=== PATIENT | female | born 1950 | race Hispanic/Latino ===

== ENCOUNTER 2018-01-24 18:43 | Emergency (ER) | payer OTHER ==
--- NOTE | 2018-01-24 20:26 | RAD REPORT ---
EXAM DESCRIPTION: Laquita Single View01/24/2018 8:04 pm CLINICAL HISTORY: Chest pain COMPARISON: January 2017 FINDINGS: The lungs appear clear of acute infiltrate. The heart is normal size IMPRESSION: No acute abnormalities displayed
--- NOTE | 2018-01-24 20:40 | RAD REPORT ---
EXAM DESCRIPTION: CT - Head Brain Wo Cont - 01/24/2018 8:25 pm CLINICAL HISTORY: Dizziness COMPARISON: 2014 TECHNIQUE: Computed axial tomography of the head was obtained. IV contrast was not requested. All CT scans are performed using dose optimization technique as appropriate and may include automated exposure control or mA/KV adjustment according to patient size. FINDINGS: An intracranial bleed is not seen . The ventricles are normal in caliber. No extra-axial fluid collection is noted. Vascular calcifications are present. Fluid within the sinuses/ mastoids is not seen. IMPRESSION: No acute intracranial abnormality is seen. If patient's symptoms persist MRI of the bra in would be recommended.
[2018-01-24 20:46] LABS: Absolute Monocytes 0.4 K/uL (0.1-1.3); Absolute Neutrophil 3.2 K/uL (1.8-8.0); Basophils % 1.5 % (0-1.3); Eosinophils % 1.6 % (0-4.4); Hematocrit 41.8 % (36.0-45.0); Lymphocytes % 34.3 % (15.3-44.8); MCH 29.3 pg (27.0-35.0); MCV 86.4 fL (80-100); MPV 8.4 fL (7.6-11.3); Monocytes % 7.4 % (3.3-12.3); RBC Red Blood Cell Count 4.84 M/uL (3.86-4.86)
[2018-01-24 20:50] LABS: Protime INR 0.93
[2018-01-24 21:08] LABS: ALT/SGPT 21 U/L (12-78); AST/SGOT 12 U/L (15-37); Albumin 3.5 g/dL (3.4-5.0); Alkaline Phosphatase 68 U/L (45-117); BUN Blood Urea Nitrogen 16 mg/dL (7-18); Bicarbonate 30 mmol/L (21-32); Bilirubin Direct 0.2 mg/dL (0-0.2); Bilirubin Total 0.6 mg/dL (0.2-1.0); CKMB Creatine Kinase MB < 1.0 ng/mL (0.3-3.6); Creatine Phosphokinase 51 U/L (26-192); Glucose Level 201 mg/dL (74-106); Magnesium 2.1 mg/dL (1.8-2.4); NT PRO-BNP 131 pg/mL (<125); Potassium 4.7 mmol/L (3.5-5.1); Protein, Total 6.9 g/dL (6.4-8.2); Sodium Level 141 mmol/L (136-145)
--- NOTE | 2018-01-24 21:24 | RAD REPORT ---
EXAM DESCRIPTION: US - Abdomen Exam Limited - 01/24/2018 9:16 pm CLINICAL HISTORY: Abdominal pain. COMPARISON: None. FINDINGS: The gallbladder wall is not thickened. A gallstone is not seen. A 3 millimeter gallbladde r polyp is present. The biliary tree is normal caliber. IMPRESSION: 3 millimeter gallbladder polyp
[2018-01-24 21:44] LABS: Urine Blood NEGATIVE (NEG); Urine Glucose 3+ (NEG); Urine Protein NEGATIVE (NEG); Urine Specific Gravity 1.025 (1.005-1.030)
--- NOTE | 2018-01-25 00:29 | EDPHYS ---
Physician Documentation [facility] Name: Deloris Gilbert Age: 67 yrs Sex: Female : 1950 Arrival Date: 01/24/2018 Time: 18:46 Bed 30 Private MD: Suri Mendosa ED Physician Carlito Smith HPI: 01/24 20:59 This 67 yrs old Female presents to ER via Wheelchair with complaints of tw4 General Weakness. 20:59 The patient presents with generalized weakness. Onset: The symptoms/episode tw4 began/occurred today. Context: occurred at home. Modifying factors: The symptoms are alleviated by nothing, the symptoms are aggravated by nothing. Severity of symptoms: At their worst the symptoms were moderate in the emergency department the symptoms are unchanged. The patient has not experienced similar symptoms in the past. 20:59 Associated signs and symptoms: Pertinent positives: abdominal pain. tw4 Historical: - Allergies: 18:48 No Known Allergies; aa5 - PMHx: 18:48 Diabetes - NIDDM; Hypertension; Hyperlipidemia; aa5 - PSHx: 18:48 Hysterectomy; shoulder sx; Appendectomy; Tonsillectomy; aa5 - Immunization history:: Flu vaccine is not up to date. - Ebola Screening: : No symptoms or risks identified at this time. - Social history:: Smoking status: Patient/guardian denies using tobacco, Patient/guardian denies using alcohol, street drugs, IV drugs. ROS: 20:59 Constitutional: Negative for fever, chills, and weight loss, Cardiovascular: Negative tw4 for chest pain, palpitations, and edema, Respiratory: Negative for shortness of breath, cough, wheezing, and pleuritic chest pain, Back: Negative for injury and pain. 20:59 Abdomen/GI: Positive for abdominal pain. 20:59 MS/Extremity: Negative for injury and deformity, Skin: Negative for injury, rash, and tw4 discoloration. 20:59 Neuro: Positive for altered mental status, headache, weakness, Negative for loss of consciousness, seizure activity, speech changes, syncope, near syncope. Exam: 20:59 Head/Face: Normocephalic, atraumatic. Eyes: Pupils equal round and reactive to light, tw4 extra-ocular motions intact. Lids and lashes normal. Conjunctiva and sclera are non-icteric and not injected. Cornea within normal limits. Periorbital areas with no swelling, redness, or edema. Chest/axilla: Normal chest wall appearance and motion. Nontender with no deformity. No lesions are appreciated. Cardiovascular: Regular rate and rhythm with a normal S1 and S2. No gallops, murmurs, or rubs. Normal PMI, no JVD. No pulse deficits. Respiratory: Lungs have equal breath sounds bilaterally, clear to auscultation and percussion. No rales, rhonchi or wheezes noted. No increased work of breathing, no retractions or nasal flaring. 20:59 MS/ Extremity: Pulses equal, no cyanosis. Neurovascular intact. Full, normal range of motion. Neuro: Awake and alert, GCS 15, oriented to person, place, time, and situation. Cranial nerves II-XII grossly intact. Motor strength 5/5 in all extremities. Sensory grossly intact. Cerebellar exam normal. Normal gait. 20:59 Constitutional: The patient appears listless, obviously ill. 20:59 Abdomen/GI: Inspection: abdomen appears normal, Bowel sounds: diminished, Palpation: moderate abdominal tenderness, in the right upper quadrant. Vital Signs: 18:48 BP 183 / 68; Pulse 81; Resp 16 S; Temp 98.2(TE); Pulse Ox 96% on R/A; aa5 21:14 BP 137 / 55; Pulse 72; Resp 18; Pulse Ox 96% on R/A; Pain 2/10; mg2 22:17 BP 135 / 55; Pulse 71; Resp 18; Pulse Ox 97% ; Pain 0/10; mg2 23:25 Pulse 68; Resp 18; Pulse Ox 97% on R/A; Pain 0/10; mg2 01/25 00:45 BP 138 / 78; Pulse 77; Resp 18; Pulse Ox 100% on R/A; Pain 0/10; mg2 MDM: 01/24 19:15 Patient medically screened. tw4 01/25 00:31 Differential diagnosis: cardiac arrhythmia, CVA, generalized weakness, tw4 hyperventilation, hypovolemia, near-syncope. Data reviewed: vital signs, nurses notes. Data interpreted: hospital monitor: rhythm is normal sinus rhythm, Pulse oximetry: Interpretation: normal. Counseling: I had a detailed discussion with the patient and/or guardian regarding: the historical points, exam findings, and any diagnostic results supporting the discharge/admit diagnosis. Special discussion: I discussed with the patient/guardian in detail that at this point there is no indication for admission to the hospital. It is understood, however, that if the symptoms persist or worsen the patient needs to return immediately for re-evaluation. 01/24 19:43 Order name: Basic Metabolic Panel; Complete Time: 22:13 01/24 19:43 Order name: CBC with Diff; Complete Time: 20:57 01/24 19:43 Order name: Ckmb; Complete Time: 22:13 01/24 19:43 Order name: CPK; Complete Time: 22:13 01/24 19:43 Order name: LFT's; Complete Time: 22:13 01/24 19:43 Order name: Magnesium; Complete Time: 22:13 01/24 19:43 Order name: NT PRO-BNP; Complete Time: 22:13 01/24 19:43 Order name: PT-INR; Complete Time: 20:57 01/24 19:43 Order name: Ptt, Activated; Complete Time: 20:57 01/24 19:43 Order name: Troponin (emerg Dept Use Only); Complete Time: 22:13 01/24 19:43 Order name: XRAY Chest (1 view); Complete Time: 20:57 01/24 19:43 Order name: CT Head Brain wo Cont; Complete Time: 20:57 01/24 20:03 Order name: Urine Dipstick--Ancillary (enter results); Complete Time: 22:13 [facility] 01/24 20:58 Order name: US Abdomen Limited; Complete Time: 22:13 01/24 19:43 Order name: EKG; Complete Time: 19:44 01/24 19:43 Order name: Cardiac monitoring; Complete Time: 19:46 01/24 19:43 Order name: EKG - Nurse/Tech; Complete Time: 19:46 01/24 19:43 Order name: IV Saline Lock; Complete Time: 20:07 01/24 19:43 Order name: Labs collected and sent; Complete Time: 20:07 01/24 19:43 Order name: O2 Per Protocol; Complete Time: 20:01/24 19:43 Order name: O2 Sat Monitoring; Complete Time: 20:07 [facility] 01/24 19:43 Order name: Urine Dipstick-Ancillary (obtain specimen); Complete Time: 20:07 01/24 22:14 Order name: CT Abd/Pelvis - W/Contrast tw4 Administered Medications: No medications were administered Point of Care Testing: Blood Glucose: 01/24 18:48 Blood Glucose: 172 mg/dL; aa5 Ranges: Critical Glucose Levels:Adult <50 mg/dl or >400 mg/dl <40 mg/dl or >180 mg/dl Disposition: 01/25/18 00:28 Discharged to Home. Impression: Weakness. - Condition is Stable. - Discharge Instructions: Weakness, Fatigue. - Medication Reconciliation Form, Thank You Letter, Antibiotic Education, Prescription Opioid Use form. - Follow up: Private Physician; When: Upon discharge from the Emergency Department; Reason: Further diagnostic work-up, Recheck today's complaints, Continuance of care. Follow up: Suri Mendosa; When: Upon discharge from the Emergency Department; Reason: Further diagnostic work-up, Recheck today's complaints, Continuance of care. - Problem is new. - Symptoms have improved. Signatures: Dispatcher [employer] EDMS Leila Ruelas RN RN aa5 Carlito Smith MD MD tw4 Constantino Castillo RN RN mg2 Corrections: (The following items were deleted from the chart) 21:00 20:59 Associated signs and symptoms: Pertinent positives: 4 01/25 00:45 00:28 01/25/2018 00:28 Discharged to Home. Impression: Weakness. Condition is Stable. mg2 Forms are Medication Reconciliation Form, Thank You Letter, Antibiotic Education, Prescription Opioid Use. Follow up: Private Physician; When: Upon discharge from the Emergency Department; Reason: Further diagnostic work-up, Recheck today's complaints, Continuance of care. Follow up: Suri Mendosa; When: Upon discharge from the Emergency Department; Reason: Further diagnostic work-up, Recheck today's complaints, Continuance of care. Problem is new. Symptoms have improved. tw4
--- NOTE | 2018-01-25 00:29 | ER ---
Nurse's Notes [facility] Name: Deloris Gilbert Age: 67 yrs Sex: Female : 1950 Arrival Date: 01/24/2018 Time: 18:46 Bed 30 Private MD: Suri Mendosa Diagnosis: Weakness Presentation: 01/24 18:55 Presenting complaint: Pt's daughter states "I went to her house and it took me a while aa5 before I could get her to wake up for me and she just told me that she needed to go to sleep". Pt c/o dizziness and feeling lightheaded since last night. Pt c/o RLQ pain and chest pain. Pt also reports generalized weakness. Pt A \\T\\ O x 4 in triage. Pt also reports cough. 18:58 Transition of care: patient was not received from another setting of care. Onset of aa5 symptoms was January 24, 2018. Risk Assessment: Do you want to hurt yourself or someone else? Patient reports no desire to harm self or others. Initial Sepsis Screen: Does the patient meet any 2 criteria? No. Patient's initial sepsis screen is negative. Does the patient have a suspected source of infection? No. Patient's initial sepsis screen is negative. Care prior to arrival: None. 18:58 Method Of Arrival: Wheelchair aa5 18:58 Acuity: JOSEFINA 3 aa5 Historical: - Allergies: 18:48 No Known Allergies; aa5 - PMHx: 18:48 Diabetes - NIDDM; Hypertension; Hyperlipidemia; aa5 - PSHx: 18:48 Hysterectomy; shoulder sx; Appendectomy; Tonsillectomy; aa5 - Immunization history:: Flu vaccine is not up to date. - Ebola Screening: : No symptoms or risks identified at this time. - Social history:: Smoking status: Patient/guardian denies using tobacco, Patient/guardian denies using alcohol, street drugs, IV drugs. Screenin:09 Abuse screen: Denies threats or abuse. Denies injuries from another. Nutritional mg2 screening: No deficits noted. Tuberculosis screening: No symptoms or risk factors identified. Fall Risk None identified. Assessment: 19:09 General: Appears in no apparent distress. comfortable, Behavior is calm, cooperative, mg2 flat. Pain: Complains of pain in chest Pain does not radiate. Pain currently is 4 out of 10 on a pain scale. Quality of pain is described as aching, Pain began gradually, Is intermittent. Neuro: Level of Consciousness is awake, alert, Oriented to person, place, time, situation. Cardiovascular: Capillary refill < 3 seconds Patient's skin is warm and dry. Respiratory: Airway is patent Respiratory effort is even, unlabored, Respiratory pattern is regular, symmetrical. GI: Abdomen is flat. : No signs and/or symptoms were reported regarding the genitourinary system. EENT: No signs and/or symptoms were reported regarding the EENT system. Derm: Skin is intact, Skin is pink, warm \\T\\ dry. normal. Musculoskeletal: No signs and/or symptoms reported regarding the musculoskeletal system. 21:13 Reassessment: Patient appears in no apparent distress at this time. Patient and/or mg2 family updated on plan of care and expected duration. Pain level reassessed. Patient is alert, oriented x 3, equal unlabored respirations, skin warm/dry/pink. 22:18 Reassessment: Patient appears in no apparent distress at this time. Patient and/or mg2 family updated on plan of care and expected duration. Pain level reassessed. Patient is alert, oriented x 3, equal unlabored respirations, skin warm/dry/pink. 22:31 Reassessment: patient sent to ct scan. mg2 23:25 Reassessment: Patient appears in no apparent distress at this time. Patient and/or mg2 family updated on plan of care and expected duration. Pain level reassessed. Patient is alert, oriented x 3, equal unlabored respirations, skin warm/dry/pink. 01/25 00:44 Reassessment: Patient appears in no apparent distress at this time. Patient and/or mg2 family updated on plan of care and expected duration. Pain level reassessed. Patient is alert, oriented x 3, equal unlabored respirations, skin warm/dry/pink. Vital Signs: 01/24 18:48 BP 183 / 68; Pulse 81; Resp 16 S; Temp 98.2(TE); Pulse Ox 96% on R/A; aa5 21:14 BP 137 / 55; Pulse 72; Resp 18; Pulse Ox 96% on R/A; Pain 2/10; mg2 22:17 BP 135 / 55; Pulse 71; Resp 18; Pulse Ox 97% ; Pain 0/10; mg2 23:25 Pulse 68; Resp 18; Pulse Ox 97% on R/A; Pain 0/10; mg2 01/25 00:45 BP 138 / 78; Pulse 77; Resp 18; Pulse Ox 100% on R/A; Pain 0/10; mg2 ED Course: 01/24 18:46 Patient arrived in ED. mr 18:47 Suri Mendosa is Private Physician. mr 18:55 Arm band placed on Patient placed in an exam room, on a stretcher. aa5 18:58 Triage completed. aa5 18:59 Constantino Castillo, RN is Primary Nurse. mg2 19:11 Patient has correct armband on for positive identification. Bed in low position. mg2 19:15 Carlito Smith MD is Attending Physician. tw4 19:35 EKG done, by ED staff. mg2 20:03 X-ray completed. Portable x-ray completed in exam room. Patient tolerated procedure az well. 20:04 XRAY Chest (1 view) In Process Unspecified. EDMS 20:08 Inserted saline lock: 20 gauge in right antecubital area, using aseptic technique. mg2 Blood collected. 20:25 CT Head Brain wo Cont In Process Unspecified. EDMS 21:16 US Abdomen Limited In Process Unspecified. EDMS 23:11 CT Abd/Pelvis - W/Contrast In Process Unspecified. EDMS 01/25 00:27 Suri Mendosa is Referral Physician. tw4 00:44 No provider procedures requiring assistance completed. IV discontinued, intact, mg2 bleeding controlled, No redness/swelling at site. Pressure dressing applied. Administered Medications: No medications were administered Point of Care Testing: Blood Glucose: 01/24 18:48 Blood Glucose: 172 mg/dL; aa5 Ranges: Outcome: 01/25 00:28 Discharge ordered by . tw4 00:45 Discharged to home via wheelchair, with family. mg2 00:45 Condition: stable 00:45 Discharge instructions given to patient, family, Instructed on discharge instructions, follow up and referral plans. Demonstrated understanding of instructions, follow-up care. 00:45 Patient left the ED. mg2 Signatures: Dispatcher [employer] EDPA PeraltaRadha mr RuelasLeila RN RN aa5 Carlito Smith MD MD tw4 Constantino Castillo, RICKI RN mg2 Estefania Story Corrections: (The following items were deleted from the chart) 01/24 18:58 18:55 Presenting complaint: Pt's daughter states "I went to her house and it took me a aa5 while before I could get her to wake up for me and she just told me that she needed to go to sleep". Pt c/o dizziness and feeling lightheaded since last night. Pt c/o RLQ pain and chest pain. Pt also reports generalized weakness. aa5 18:59 18:55 Presenting complaint: Pt's daughter states "I went to her house and it took me a aa5 while before I could get her to wake up for me and she just told me that she needed to go to sleep". Pt c/o dizziness and feeling lightheaded since last night. Pt c/o RLQ pain and chest pain. Pt also reports generalized weakness. Pt A \\T\\ O x 4 in triage aa5
--- NOTE | 2018-01-25 06:46 | EKG ---
Test Date: 2018-01-24 Test Time: 19:02:07 Glass Cleaner: MG MEASUREMENT RESULTS: Intervals: Rate: 74 FL: 166 QRSD: 74 QT: 392 QTc: 435 Colver: P: -2 FL: 166 QRS: -4 T: 15 INTERPRETIVE STATEMENTS: Normal sinus rhythm Non specific T abnormality Abnormal ECG Compared to ECG 12/26/2007 10:20:38 No significant changes Electronically Signed On 01-25-18 06:45:03 CDT by Jarett Flores
--- NOTE | 2018-01-25 08:19 | RAD REPORT ---
EXAM DESCRIPTION: CT - Abdomen Pelvis W Contrast - 01/25/2018 4:00 am CLINICAL HISTORY: ABD PAIN<Reason For Exam>ABD PAIN A preliminary report was provided at the time of the study and reviewed prior to final report. COMPARISON: No comparisons<Comparisons> TECHNIQUE: Biphasic, helical CT imaging of the abdomen and pelvis was performed following 100 ml non -ionic IV contrast. Oral contrast was given. All CT scans are performed using dose optimization technique as appropriate and may include automated exposure control or mA/KV adjustment according to patient size. FINDINGS: No suspicious findings in the lung bases. The liver, spleen, and pancreas show no suspicious findings. In the posteromedial right lobe (image 1 ) there is a 2.4 centimeter low-density mass. Irregular peripheral nodular enhancement is seen an d this is believed to be an incidental hemangioma. Two small 12 millimeter low-density masses in the midline left lobe are also believed to be incidental hemangiomas. No gallbladder or biliary tree abnormality. Symmetric renal function is seen with no hydronephrosis or suspicious renal mass. No pyelonephritis o r acute renal parenchymal process. No urinary bladder abnormality seen. No dilated bowel loops or bowel wall thickening. No free air, free fluid or inflammatory stranding. No mass or bulky lymphadenopathy. Fat filled right inguinal hernia. No adrenal abnormality. Uterus i s absent. Ovaries are absent or atrophic. No adnexal mass. No suspicious bony findings. Scattered bony degenerative change seen. IMPRESSION: Contrast enhanced CT abdomen and pelvis showing no significant or suspicious finding. N onacute findings detailed in the body of the report.
== END 2018-01-25 00:45 | disposition home or self-care (01) ==
LOC: ER 18:43
DX: R53.1 Weakness (principal); I10 Essential (primary) hypertension
CPT/HCPCS: 36415; 70450; 71045; 74177; 76705; 80048; 80076; 81003; 82550; 82553; 82962; 83735; 83880; 84484; 85025; 85610; 85730; 93005; 99284; Q9967

== ENCOUNTER 2020-12-24 20:16 | Emergency (ER) | payer OTHER, SELFPAY ==
--- NOTE | 2020-12-24 21:55 | RAD REPORT ---
EXAM DESCRIPTION: US - Extremity Venous Uni Ltd - 12/24/2020 9:27 pm CLINICAL HISTORY: SWELLING Leg swelling and edema. COMPARISON: EXT VENOUS UNI LTD dated 07/22/2010 FINDINGS: Left lower extremity venous system was interrogated with Doppler technique. Normal flow, c ompressibility and augmentation was noted. There is no DVT present. IMPRESSION: No evidence of left lower extremity deep venous thrombosis.
[2020-12-24 22:58] LABS: Absolute Lymphocytes (CBC) 1.7 K/uL (0.7-4.9); Basophils % 1.1 % (0-1.3); Hematocrit 38.2 % (36.0-45.0); Lymphocytes % 35.1 % (15.3-44.8); MPV 8.3 fL (7.6-11.3); RBC Red Blood Cell Count 4.33 M/uL (3.86-4.86)
[2020-12-24 22:59] LABS: Protime INR 1.02
[2020-12-24 23:12] LABS: ALT/SGPT 21 U/L (12-78); AST/SGOT 12 U/L (15-37); Albumin 3.5 g/dL (3.4-5.0); Alkaline Phosphatase 67 U/L (45-117); BUN Blood Urea Nitrogen 17 mg/dL (7-18); Bicarbonate 27 mmol/L (21-32); Bilirubin Direct 0.2 mg/dL (0-0.2); Bilirubin Total 0.9 mg/dL (0.2-1.0); Glucose Level 107 mg/dL (74-106); Magnesium 1.9 mg/dL (1.8-2.4); NT PRO-BNP 351 pg/mL (<125); Potassium 3.5 mmol/L (3.5-5.1); Protein, Total 7.1 g/dL (6.4-8.2); Sodium Level 143 mmol/L (136-145); Troponin (Emerg Dept Use Only) < 0.02 ng/mL (0.0-0.045)
--- NOTE | 2020-12-24 23:35 | ER ---
Nurse's Notes [facility] Name: Deloris Gilbert Age: 70 yrs Sex: Female : 1950 Arrival Date: 12/24/2020 Time: 20:17 Bed 26 Private MD: Diagnosis: Peripheral edema Presentation: 12/24 20:50 Chief complaint: Patient states: Swelling and pain in left leg from thigh down to foot kg x 1 month. Coronavirus screen: Client denies travel out of the [place] in the last 14 days. At this time, unable to obtain information related to travel outside the [place] At this time, the client does not indicate any symptoms associated with coronavirus-19. Ebola Screen: Patient negative for fever greater than or equal to 101.5 degrees Fahrenheit, and additional compatible Ebola Virus Disease symptoms Patient denies exposure to infectious person. Patient denies travel to an Ebola-affected area in the 21 days before illness onset. Initial Sepsis Screen: Does the patient meet any 2 criteria? No. Patient's initial sepsis screen is negative. Does the patient have a suspected source of infection? No. Patient's initial sepsis screen is negative. Risk Assessment: Do you want to hurt yourself or someone else? Patient reports no desire to harm self or others. Onset of symptoms is unknown. 20:50 Method Of Arrival: Ambulatory kg 20:50 Acuity: JOSEFINA 4 kg Triage Assessment: 20:52 General: Appears in no apparent distress. Behavior is calm, cooperative, appropriate kg for age, quiet. Pain: Complains of pain in left leg Pain currently is 8 out of 10 on a pain scale. at worst was 8 out of 10 on a pain scale. level that patient reports is acceptable is 6 out of 10 on a pain scale. Quality of pain is described as burning, Pain began 1 month. Cardiovascular: Edema Left foot. Historical: - Allergies: 20:52 No Known Allergies; kg - Home Meds: 20:52 metformin 1,000 mg Oral tr24 1 tab 2 times per day [Active]; B/P and Cholestrol meds. kg Unsure of name [Active]; - PMHx: 20:52 Diabetes - NIDDM; Hyperlipidemia; Hypertension; kg - PSHx: 20:52 Appendectomy; Tonsillectomy; Right shoulder sx; Total abdominal hysterectomy; kg - Immunization history:: Adult Immunizations not up to date, Client reports receiving the 2nd dose of the Covid vaccine. - Social history:: Smoking status: Patient denies any tobacco usage or history of. Patient uses alcohol, occasionally. Screenin:56 Abuse screen: Denies threats or abuse. Denies injuries from another. Nutritional kg screening: No deficits noted. Tuberculosis screening: No symptoms or risk factors identified. Fall Risk None identified. Assessment: 22:07 General: Appears in no apparent distress. comfortable, Behavior is calm, cooperative, ld1 appropriate for age. Pain: Denies pain. Neuro: Level of Consciousness is awake, alert, obeys commands, Oriented to person, place, time, situation. Cardiovascular: Capillary refill < 3 seconds Patient's skin is warm and dry. Respiratory: Airway is patent Respiratory effort is even, unlabored, Respiratory pattern is regular, symmetrical. GI: Abdomen is round non-distended. : No signs and/or symptoms were reported regarding the genitourinary system. EENT: No signs and/or symptoms were reported regarding the EENT system. Derm: No signs and/or symptoms reported regarding the dermatologic system. Musculoskeletal: No signs and/or symptoms reported regarding the musculoskeletal system. 23:08 Reassessment: Patient appears in no apparent distress at this time. Patient and/or ld1 family updated on plan of care and expected duration. Pain level reassessed. Patient is alert, oriented x 3, equal unlabored respirations, skin warm/dry/pink. Patient denies pain at this time. Vital Signs: 20:50 BP 161 / 62; Pulse 74; Resp 20; Temp 98.2; Pulse Ox 100% on R/A; Weight 86.18 kg; kg Height 5 ft. 2 in. (157.48 cm); 22:07 BP 155 / 49; Pulse 78; Resp 20; Pulse Ox 100% on R/A; ld1 23:08 BP 164 / 67; Pulse 67; Resp 18; Pulse Ox 100% on R/A; ld1 20:50 Body Mass Index 34.75 (86.18 kg, 157.48 cm) kg ED Course: 20:17 Patient arrived in ED. cf2 20:52 Triage completed. kg 20:52 Arm band placed on left wrist. kg 20:56 Patient has correct armband on for positive identification. kg 21:27 Extremity Venous Uni Ltd In Process Unspecified. EDMS 21:27 David Guevara PA is PHCP. [facility] 21:27 Brent Lema MD is Attending Physician. [facility] 22:03 Kim Pratt, RN is Primary Nurse. ld1 22:07 No provider procedures requiring assistance completed. ld1 22:45 Inserted saline lock: 22 gauge in right forearm, using aseptic technique. Blood ds4 collected. 22:56 XRAY Chest (1 view) In Process Unspecified. EDMS 23:45 IV discontinued, intact, bleeding controlled, No redness/swelling at site. ld1 Administered Medications: No medications were administered Outcome: 23:34 Discharge ordered by MD. [facility] 23:44 Discharged to home ambulatory. ld1 23:44 Condition: stable 23:44 Discharge instructions given to patient, Instructed on discharge instructions, follow up and referral plans. medication usage, Demonstrated understanding of instructions, follow-up care, medications, Prescriptions given X 1. 23:45 Patient left the ED. ld1 Signatures: Dispatcher [employer] EDMS David Guevara PA PA [facility] Hieu Beaver ds4 Adriane George cf2 Kim Pratt, RN RN ld1 Kierra Wilkes, RICKI RN kg
--- NOTE | 2020-12-24 23:35 | EDPHYS ---
Physician Documentation [facility] Name: Deloris Gilbert Age: 70 yrs Sex: Female : 1950 Arrival Date: 12/24/2020 Time: 20:17 Bed 26 Private MD: ED Physician Brent Lema HPI: 12/24 21:26 This 70 yrs old Female presents to ER via Ambulatory with complaints of Leg jmm Swelling, Feet Swelling, HAS BEEN SWOLLEN FOR 1 MONTH. 21:26 The patient presents with swelling. Onset: The symptoms/episode began/occurred jmm gradually, 2 month(s) ago. Modifying factors: The symptoms are alleviated by nothing. the symptoms are aggravated by nothing. Associated signs and symptoms: Pertinent positives: swelling, Pertinent negatives calf tenderness, fever. Is a 70-year-old female with a history of diabetes mellitus, hyperlipidemia, hypertension that presents emerged part with complaints of left leg swelling this is been ongoing. Patient denies shortness of breath, fever, chest pain, redness.. Historical: - Allergies: 20:52 No Known Allergies; kg - Home Meds: 20:52 metformin 1,000 mg Oral tr24 1 tab 2 times per day [Active]; B/P and Cholestrol meds. kg Unsure of name [Active]; - PMHx: 20:52 Diabetes - NIDDM; Hyperlipidemia; Hypertension; kg - PSHx: 20:52 Appendectomy; Tonsillectomy; Right shoulder sx; Total abdominal hysterectomy; kg - Immunization history:: Adult Immunizations not up to date, Client reports receiving the 2nd dose of the Covid vaccine. - Social history:: Smoking status: Patient denies any tobacco usage or history of. Patient uses alcohol, occasionally. ROS: 21:26 Constitutional: Negative for fever, chills, and weight loss, Cardiovascular: Negative jmm for chest pain, palpitations, and edema, Respiratory: Negative for shortness of breath, cough, wheezing, and pleuritic chest pain. 21:26 MS/extremity: Positive for swelling. 21:26 All other systems are negative. Exam: 21:26 Constitutional: This is a well developed, well nourished patient who is awake, alert, jmm and in no acute distress. Head/Face: atraumatic. Eyes: EOMI, no conjunctival erythema appreciated ENT: Moist Mucus Membranes Neck: Trachea midline, Supple Chest/axilla: Normal chest wall appearance and motion. Cardiovascular: Regular rate and rhythm. No edema appreciated Respiratory: Normal respirations, no respiratory distress appreciated Abdomen/GI: Non distended, soft Back: Normal ROM Skin: General appearance color normal 21:26 Musculoskeletal/extremity: Mild edema noted to the left lower leg, compartments are soft, full dorsalis pulses appreciated, neurovascular intact. 21:26 Skin: Appearance: Color: normal in color. 21:26 Neuro: Orientation: is normal, Mentation: is normal, Memory: is normal. 21:26 Psych: Behavior/mood is pleasant, cooperative. Vital Signs: 20:50 BP 161 / 62; Pulse 74; Resp 20; Temp 98.2; Pulse Ox 100% on R/A; Weight 86.18 kg; kg Height 5 ft. 2 in. (157.48 cm); 22:07 BP 155 / 49; Pulse 78; Resp 20; Pulse Ox 100% on R/A; ld1 23:08 BP 164 / 67; Pulse 67; Resp 18; Pulse Ox 100% on R/A; ld1 20:50 Body Mass Index 34.75 (86.18 kg, 157.48 cm) kg MDM: 22:27 Patient medically screened. louise 23:33 Data reviewed: vital signs, nurses notes. Counseling: I had a detailed discussion with louise the patient and/or guardian regarding: the historical points, exam findings, and any diagnostic results supporting the discharge/admit diagnosis, the need for outpatient follow up, to return to the emergency department if symptoms worsen or persist or if there are any questions or concerns that arise at home. ED course: Patient is alert and nontoxic in appearance in the ED. Oxygen saturation is 100%. Chest x-ray does show some mild cardiomegaly, there is a mild elevation in the BNP. Due to this patient is encouraged to follow-up with PCP or cardiology for further evaluation otherwise given strict return precautions for chest pain, shortness of breath, increased swelling, etc. Patient understood and agrees with plan of care.. 12/24 21: Order name: Basic Metabolic Panel [facility] 12/24 21: Order name: CBC with Diff [facility] 12/24 21: Order name: LFT's [facility] 12/24 21: Order name: Magnesium; Complete Time: 23:16 [facility] 12/24 22:27 Order name: NT PRO-BNP; Complete Time: 23:16 [facility] 12/24 22:27 Order name: PT-INR; Complete Time: 23:00 [facility] 12/24 21:16 Order name: Extremity Venous Uni Ltd; Complete Time: 22:28 [facility] 12/24 22:27 Order name: Troponin (emerg Dept Use Only); Complete Time: 23:16 [facility] 12/24 22:27 Order name: XRAY Chest (1 view) [facility] 12/24 22:27 Order name: EKG; Complete Time: 22:28 [facility] 12/24 22:28 Order name: Basic Metabolic Panel; Complete Time: 23:16 [facility] 12/24 22:28 Order name: CBC with Automated Diff; Complete Time: 23:01 [facility] 12/24 22:28 Order name: Liver (Hepatic) Function; Complete Time: 23:16 [facility] 12/24 22:27 Order name: Cardiac monitoring; Complete Time: 22:29 [facility] 12/24 22:27 Order name: EKG - Nurse/Tech; Complete Time: 22:29 [facility] 12/24 22:27 Order name: IV Saline Lock; Complete Time: 22:34 [facility] 12/24 22:27 Order name: Labs collected and sent; Complete Time: 22:34 [facility] 12/24 22:27 Order name: O2 Per Protocol; Complete Time: 22:29 [facility] 12/24 22:27 Order name: O2 Sat Monitoring; Complete Time: 22:29 [facility] Administered Medications: No medications were administered Disposition: 23:33 Chart complete. [facility] Disposition Summary: 12/24/20 23:34 Discharge Ordered Location: Home [facility] Condition: Stable [facility] Diagnosis - Peripheral edema [facility] Followup: [facility] - With: Private Physician - When: 2 - 3 days - Reason: Recheck today's complaints, Continuance of care, Re-evaluation by your physician Discharge Instructions: - Discharge Summary Sheet [facility] - Peripheral Edema [facility] Forms: - Medication Reconciliation Form [facility] - Thank You Letter [facility] - Antibiotic Education [facility] - Prescription Opioid Use [facility] Prescriptions: - furosemide 20 mg Oral tablet - take 1 tablet by ORAL route once daily; 20 tablet; Refills: 0, Product [facility] Selection Permitted Signatures: Dispatcher [employer] EDMS MicDavid beckett PA PA jmm Graham, Kristen, RN RN kg Corrections: (The following items were deleted from the chart) 21:16 20:57 Lower Extremity Artery Uni [email or web address] ordered. EDMS EDMS
--- NOTE | 2020-12-25 11:15 | RAD REPORT ---
EXAM DESCRIPTION: RadLex: XR CHEST 1 VIEW CLINICAL HISTORY: Edema. COMPARISON: None. TECHNIQUE: Single view AP chest radiograph(s). FINDINGS: Mild diffuse pulmonary interstitial thickening. No infiltrate. No pleural effusion. No pne umothorax. Mild cardiomegaly. No significant osseous abnormality. IMPRESSION: Mild diffuse pulmonary interstitial thickening. No infiltrate identified. Mild cardiomeg william. Electronically signed by: Leann Nice MD 12/24/2020 11:15 PM CDT Due to temporary technical issues with the PACS/Fluency reporting system, reports are being signed by the in house radiologist without review as a courtesy to ensure prompt reporting. The interpreting r adiologist is fully responsible for the content of the report.
[2020-12-26 04:49] VITALS: TEMP 98.2; O2SAT 100
[2020-12-26 04:52] VITALS: BP 164/67
--- NOTE | 2020-12-26 07:33 | EKG ---
Test Date: 2020-12-24 Test Time: 22:24:29 Belt Dresser: ROSIE MEASUREMENT RESULTS: Intervals: Rate: 68 WI: 162 QRSD: 80 QT: 406 QTc: 431 [place]: P: 26 WI: 162 QRS: 13 T: 20 INTERPRETIVE STATEMENTS: Normal sinus rhythm Normal ECG Compared to ECG 01/24/2018 19:02:07 T-wave abnormality no longer present Electronically Signed On 12-26-20 07:28:48 CDT by Cristino Valentino
== END 2020-12-24 23:45 | disposition home or self-care (01) ==
LOC: ER 20:16
DX: R22.40 Localized swelling, mass and lump, unspecified lower limb (principal); E11.9 Type 2 diabetes mellitus without complications; E78.5 Hyperlipidemia, unspecified; I10 Essential (primary) hypertension; Z79.84 Long term (current) use of oral hypoglycemic drugs
CPT/HCPCS: 36415; 71045; 80048; 80076; 83735; 83880; 84484; 85025; 85610; 93005; 93971

== ENCOUNTER 2021-10-13 18:29 | Emergency (ER) | payer MEDICARE ==
--- OUTSIDE RECORDS SUMMARY | 2021-10-13 18:31 | XMS REPORT | Continuity of Care Document ---
:1950 Author Organization [facility] t Address [address] [place] [address] Care Team Providers Name Role Phone Alesha Strong Attending Clinician Unavailable Payers Payer Name Policy Type Policy Number Effective Date Expiration Date [id number] (MEDICARE 00:00:00 REPLACEMENT HMO) Problems This patient has no known problems. Allergies, Adverse Reactions, Alerts This patient has no known allergies or adverse reactions. Medications This patient has no known medications. Procedures This patient has no known procedures. Encounters Start End Encounter Admission Attending Care Care Encounter Source Date/Time Date/Time Type Type Clinicians Facility Department ID 2021-06-[address] [facility] [id number] 2 Common 14:24:32 [id number] [facility] 2021-06-[address] [facility] [id number] 2 Common 13:41:05 [id number] [facility] 2020-12-30 2020-12-30 Outpatient [facility] ALEXISG [id number] [facility] 03:30:00 03:30:00 [id number] [facility] This patient has no known results.
[2021-10-13] MEDS ORDERED: ACETAMINOPHEN 500 MG TAB ONE (20:57)
[2021-10-13 20:59] LABS: Absolute Lymphocytes (CBC) 1.5 K/uL (0.7-4.9); Hematocrit 38.9 % (36.0-45.0); Lymphocytes % 27.4 % (15.3-44.8); MPV 8.2 fL (7.6-11.3); RBC Red Blood Cell Count 4.48 M/uL (3.86-4.86)
[2021-10-13 21:03] LABS: Protime INR 1.03
[2021-10-13 21:17] LABS: Albumin 3.6 g/dL (3.4-5.0); Bilirubin Direct 0.3 mg/dL (0-0.2); Bilirubin Total 0.9 mg/dL (0.2-1.0); Magnesium 1.9 mg/dL (1.8-2.4); Potassium 3.7 mmol/L (3.5-5.1); Protein, Total 7.2 g/dL (6.4-8.2); Troponin High Sensitivity 6.1 pg/mL (<58.9)
--- NOTE | 2021-10-13 21:49 | RAD REPORT ---
EXAM DESCRIPTION: RAD - Chest Single View - 10/13/2021 9:39 pm CLINICAL HISTORY: Cough Chest pain. COMPARISON: Chest Single View dated 12/24/2020; Chest Single View dated 01/24/2018; Chest Pa And Lat ( 2 Views) dated 02/02/2017; CHEST SINGLE VIEW dated 12/26/2007 FINDINGS: Portable technique limits examination quality. The lungs are grossly clear. The heart is normal in size. No displaced fractures. IMPRESSION: No acute intrathoracic process suspected.
--- NOTE | 2021-10-13 22:04 | EDPHYS ---
Physician Documentation [facility] Name: Deloris Gilbert Age: 71 yrs Sex: Female : 1950 Arrival Date: 10/13/2021 Time: 18:31 Bed 9 Private MD: Mel Strong ED Physician Jonathon Alexis HPI: 10/13 20:29 This 71 yrs old Female presents to ER via Ambulatory with complaints of Chest mh7 Pain, Cough. 20:30 The patient or guardian reports cough, that is intermittent, described as moderate, mh7 with no sputum, Runny nose, congestion, sore throat. Onset: The symptoms/episode began/occurred 1 month(s) ago. Severity of symptoms: At their worst the symptoms were moderate, 7 day(s) ago, in the emergency department the symptoms have improved, mildly. Modifying factors: The symptoms are alleviated by nothing, the symptoms are aggravated by nothing. Associated signs and symptoms: Pertinent positives: chest pain, with cough, rhinorrhea, sore throat, Pertinent negatives: diarrhea, ear ache, fever, nausea, vomiting. Persistent cough for a month with temporary relief with cough medication.. Historical: - Home Meds: 20:49 B/P and Cholestrol meds. Unsure of name [Active]; metformin 1,000 mg Oral cp24 1 tab 2 kd3 times per day [Active]; - PMHx: 20:49 Diabetes - NIDDM; Hyperlipidemia; Hypertension; kd3 - PSHx: 20:49 Appendectomy; Right shoulder sx; Tonsillectomy; Total abdominal hysterectomy; kd3 - Immunization history:: Adult Immunizations up to date. - Social history:: Smoking status: unknown. ROS: 20:30 Constitutional: Negative for fever, chills, and weight loss, Eyes: Negative for injury, mh7 pain, redness, and discharge, Neck: Negative for injury, pain, and swelling, Abdomen/GI: Negative for abdominal pain, nausea, vomiting, diarrhea, and constipation, Back: Negative for injury and pain, : Negative for injury, bleeding, discharge, and swelling, MS/Extremity: Negative for injury and deformity, Skin: Negative for injury, rash, and discoloration, Neuro: Negative for headache, weakness, numbness, tingling, and seizure, Psych: Negative for depression, anxiety, suicide ideation, homicidal ideation, and hallucinations, Allergy/Immunology: Negative for hives, rash, and allergies, Endocrine: Negative for neck swelling, polydipsia, polyuria, polyphagia, and marked weight changes, Hematologic/Lymphatic: Negative for swollen nodes, abnormal bleeding, and unusual bruising. Exam: 20:30 Constitutional: This is a well developed, well nourished patient who is awake, alert, mh7 and in no acute distress. Head/Face: Normocephalic, atraumatic. Eyes: Pupils equal round and reactive to light, extra-ocular motions intact. Lids and lashes normal. Conjunctiva and sclera are non-icteric and not injected. Cornea within normal limits. Periorbital areas with no swelling, redness, or edema. Neck: Trachea midline, no thyromegaly or masses palpated, and no cervical lymphadenopathy. Supple, full range of motion without nuchal rigidity, or vertebral point tenderness. No Meningismus. Cardiovascular: Regular rate and rhythm with a normal S1 and S2. No gallops, murmurs, or rubs. Normal PMI, no JVD. No pulse deficits. Respiratory: Lungs have equal breath sounds bilaterally, clear to auscultation and percussion. No rales, rhonchi or wheezes noted. No increased work of breathing, no retractions or nasal flaring. Abdomen/GI: Soft, non-tender, with normal bowel sounds. No distension or tympany. No guarding or rebound. No evidence of tenderness throughout. Back: No spinal tenderness. No costovertebral tenderness. Full range of motion. Skin: Warm, dry with normal turgor. Normal color with no rashes, no lesions, and no evidence of cellulitis. MS/ Extremity: Pulses equal, no cyanosis. Neurovascular intact. Full, normal range of motion. Neuro: Awake and alert, GCS 15, oriented to person, place, time, and situation. Cranial nerves II-XII grossly intact. Motor strength 5/5 in all extremities. Sensory grossly intact. Cerebellar exam normal. Normal gait. Psych: Awake, alert, with orientation to person, place and time. Behavior, mood, and affect are within normal limits. 20:30 Chest/axilla: Inspection: normal, Palpation: tenderness, that is mild, of the mid-sternal area, that totally reproduces the patient's complaints, Axilla: are normal, Lymph nodes: lymphadenopathy is not appreciated. 20:30 ECG was reviewed by the Attending Physician. [facility] 20:30 ENT: Nares patent. No nasal discharge, no septal abnormalities noted. Tympanic [facility] membranes are normal and external auditory canals are clear. Oropharynx with no redness, swelling, or masses, exudates, or evidence of obstruction, uvula midline. Mucous membranes moist. Vital Signs: 18:51 BP 159 / 63; Pulse 92; Resp 20; Temp 98.5(O); Pulse Ox 97% on R/A; Pain 0/10; ll1 22:21 BP 151 / 58; Pulse 75; Resp 20; Pulse Ox 99% on R/A; kd3 MDM: 22:01 Differential Diagnosis: Obstructed Airway Bronchitis Influenza Upper Respiratory mh7 Infection Allergic Rhinitis Asthma Exacerbation Viral Syndrome Pneumonia. Data reviewed: vital signs, nurses notes, lab test result(s), cardiac enzymes, CBC, electrolytes, EKG, radiologic studies, plain films. Data interpreted: Pulse oximetry: on room air is 97 %. Interpretation: normal. Counseling: I had a detailed discussion with the patient and/or guardian regarding: the historical points, exam findings, and any diagnostic results supporting the discharge/admit diagnosis, the presence of at least one elevated blood pressure reading (>120/80) during this emergency department visit, lab results, radiology results, the need for outpatient follow up, to return to the emergency department if symptoms worsen or persist or if there are any questions or concerns that arise at home. Response to treatment: the patient's symptoms have resolved after treatment, the patient's blood pressure is in an acceptable range, mental status has returned to baseline, the patient no longer shows bradycardia, the patient is not short of breath, the patient is not tachycardic, the patient's pain is gone, the patient's temperature has normalized. 22:03 Patient medically screened. [facility] 10/13 20:24 Order name: Basic Metabolic Panel; Complete Time: 21:25 [facility] 10/13 20:24 Order name: CBC with Diff; Complete Time: 21:25 [facility] 10/13 20:24 Order name: LFT's; Complete Time: 21:25 [facility] 10/13 20:24 Order name: Magnesium; Complete Time: 21:25 [facility] 10/13 20:24 Order name: NT PRO-BNP; Complete Time: 21:25 [facility] 10/13 20:24 Order name: PT-INR; Complete Time: 21:25 [facility] 10/13 20:24 Order name: Troponin HS; Complete Time: 21:25 [facility] 10/13 20:24 Order name: XRAY Chest (1 view); Complete Time: 21:53 [facility] 10/13 20:24 Order name: EKG; Complete Time: 20:25 [facility] 10/13 20:25 Order name: COVID-19 SARS RT PCR (Document "Date of Onset" if Symptomatic); Complete [facility] Time: 21:53 10/13 20:25 Order name: Influenza Screen (a \\T\\ B); Complete Time: 21:25 [facility] 10/13 20:25 Order name: Rapid Strep; Complete Time: 21:25 [facility] 10/13 21:20 Order name: Throat Culture [facility] 10/13 20:24 Order name: Cardiac monitoring; Complete Time: 20:47 [facility] 10/13 20:24 Order name: EKG - Nurse/Tech; Complete Time: 20:59 [facility] 10/13 20:24 Order name: IV Saline Lock; Complete Time: 20:47 [facility] 10/13 20:24 Order name: Labs collected and sent; Complete Time: 20:47 [facility] 10/13 20:24 Order name: O2 Per Protocol; Complete Time: 20:47 [facility] 10/13 20:24 Order name: O2 Sat Monitoring; Complete Time: 20:47 mh7 EC:30 Rate is 69 beats/min. Rhythm is regular, Normal Sinus Rhythm with No ectopy. QRS [place] [facility] is Normal. [place] interval is normal. QRS interval is normal. QT interval is normal. No Q waves. T waves are Normal. No ST changes noted. Clinical impression: Normal ECG. Administered Medications: 20:59 Drug: Tylenol 1000 mg Route: PO; kd3 22:24 Follow up: Response: No adverse reaction; Pain is decreased kd3 Disposition Summary: 10/13/21 22:03 Discharge Ordered Location: Home [facility] Problem: an ongoing problem [facility] Symptoms: have improved [facility] Condition: Stable [facility] Diagnosis - Cough [facility] Followup: [facility] - With: Private Physician - When: 1 - 2 days - Reason: Worsening of condition, Recheck today's complaints, Continuance of care, Re-evaluation by your physician Discharge Instructions: - Discharge Summary Sheet [facility] - Cough, Adult, [id number] [facility] Forms: - Medication Reconciliation Form [facility] - Thank You Letter [facility] - Antibiotic Education [facility] - Prescription Opioid Use [facility] Prescriptions: - Tessalon Perles 100 mg Oral Capsule - take 1 capsule by ORAL route every 8 hours As needed; 15 capsule; Refills: 0, mh7 Product Selection Permitted Signatures: Dispatcher [employer] Jonathon Santiago MD MD [facility] Adriana Carreon RN RN kd3
--- NOTE | 2021-10-13 22:04 | ER ---
Nurse's Notes [facility] Name: Deloris Gilbert Age: 71 yrs Sex: Female : 1950 Arrival Date: 10/13/2021 Time: 18:31 Bed 9 Private MD: Mel Strong Diagnosis: Cough Presentation: 10/13 18:51 Chief complaint: Patient states: cough x 1 month with chest wall pain aggravated by ll1 cold drinks. Has seen PCP Tae with no relief. Coronavirus screen: Vaccine status: Patient reports receiving the 2nd dose of the covid vaccine. Ebola Screen: Patient negative for fever greater than or equal to 101.5 degrees Fahrenheit, and additional compatible Ebola Virus Disease symptoms. Initial Sepsis Screen: Does the patient meet any 2 criteria? No. Patient's initial sepsis screen is negative. Risk Assessment: Do you want to hurt yourself or someone else? Patient reports no desire to harm self or others. Onset of symptoms was August 29, 2021. 18:51 Method Of Arrival: Ambulatory ll1 18:51 Acuity: JOSEFINA 3 ll1 22:21 Initial Sepsis Screen: Does the patient meet any 2 criteria? No. Patient's initial kd3 sepsis screen is negative. Does the patient have a suspected source of infection? No. Patient's initial sepsis screen is negative. Triage Assessment: 20:48 General: Appears in no apparent distress. Behavior is calm, cooperative. Pain: kd3 Complains of pain in mid-sternal area. Cardiovascular: Patient's skin is warm and dry. Respiratory: Airway is patent Trachea midline Respiratory effort is even, unlabored, Respiratory pattern is regular. GI: No signs and/or symptoms were reported involving the gastrointestinal system. Historical: - Home Meds: 20:49 B/P and Cholestrol meds. Unsure of name [Active]; metformin 1,000 mg Oral cp24 1 tab 2 kd3 times per day [Active]; - PMHx: 20:49 Diabetes - NIDDM; Hyperlipidemia; Hypertension; kd3 - PSHx: 20:49 Appendectomy; Right shoulder sx; Tonsillectomy; Total abdominal hysterectomy; kd3 - Immunization history:: Adult Immunizations up to date. - Social history:: Smoking status: unknown. Screenin:48 Abuse screen: Denies threats or abuse. Denies injuries from another. Nutritional kd3 screening: No deficits noted. Tuberculosis screening: No symptoms or risk factors identified. Fall Risk None identified. IV access (20 points). Assessment: 20:49 General: Appears in no apparent distress. Behavior is calm, cooperative. Pain: Pain kd3 does not radiate. Pain began gradually. Vital Signs: 18:51 BP 159 / 63; Pulse 92; Resp 20; Temp 98.5(O); Pulse Ox 97% on R/A; Pain 0/10; ll1 22:21 BP 151 / 58; Pulse 75; Resp 20; Pulse Ox 99% on R/A; kd3 ED Course: 18:31 Patient arrived in ED. mr 18:31 Mel Strong MD is Private Physician. mr 18:54 Triage completed. ll1 20:00 Jonathon Alexis MD is Attending Physician. 7 20:14 Adriana Carreon, RICKI is Primary Nurse. kd3 20:47 Rapid Strep Sent. kd3 20:47 Influenza Screen (a \\T\\ B) Sent. kd3 20:47 COVID-19 SARS RT PCR (Document "Date of Onset" if Symptomatic) Sent. kd3 20:47 Basic Metabolic Panel Sent. kd3 20:47 CBC with Diff Sent. kd3 20:47 LFT's Sent. kd3 20:47 Magnesium Sent. kd3 20:48 NT PRO-BNP Sent. kd3 20:48 PT-INR Sent. kd3 20:48 Troponin HS Sent. kd3 20:48 Arm band placed on right wrist. kd3 21:41 XRAY Chest (1 view) In Process Unspecified. EDMS 22:20 No provider procedures requiring assistance completed. IV discontinued, intact, kd3 bleeding controlled, No redness/swelling at site. Pressure dressing applied. Patient maintains SpO2 saturation greater than 95% on room air. 22:21 Patient has correct armband on for positive identification. Bed in low position. Call kd3 light in reach. Client placed on continuous cardiac and pulse oximetry monitoring. NIBP monitoring applied. ekg monitor tech on. Pulse ox on. NIBP on. Administered Medications: 20:59 Drug: Tylenol 1000 mg Route: PO; kd3 22:24 Follow up: Response: No adverse reaction; Pain is decreased kd3 Medication: 22:21 VIS not applicable for this client. kd3 Outcome: 22:03 Discharge ordered by . shamir 22:21 Discharged to home ambulatory. kd3 22:21 Condition: stable 22:21 Discharge instructions given to patient, family, Instructed on discharge instructions, follow up and referral plans. medication usage, Demonstrated understanding of instructions, follow-up care, medications, Prescriptions given X 1. 22:24 Patient left the ED. kd3 Signatures: Dispatcher [employer] [facility] PeraltaCrystal Lynsay RN RN ll1 Jonathon Alexis MD MD mh7 Doucette, Kyli, RN RN kd3
[2021-10-13 22:32] VITALS: TEMP 98.5
[2021-10-13 22:33] VITALS: BP 151/58; O2SAT 99
--- NOTE | 2021-10-14 09:34 | EKG ---
Test Date: 2021-10-13 Test Time: 20:23:32 Counter Weigher: ROSIE MEASUREMENT RESULTS: Intervals: Rate: 69 DC: 166 QRSD: 78 QT: 416 QTc: 445 [place]: P: 18 DC: 166 QRS: -5 T: 39 INTERPRETIVE STATEMENTS: Normal sinus rhythm Normal ECG Compared to ECG 12/24/2020 22:24:29 No significant changes Electronically Signed On 10-14-21 09:32:08 CDT by Cristino Valentino
== END 2021-10-13 22:24 | disposition home or self-care (01) ==
LOC: ER 18:29
DX: R05.9 Cough, unspecified (principal); E11.9 Type 2 diabetes mellitus without complications; E78.5 Hyperlipidemia, unspecified; I10 Essential (primary) hypertension; Z20.822 Contact with and (suspected) exposure to COVID-19
CPT/HCPCS: 93005; 87070; 85025; 80048; 36415; 83735; 85610; 80076; 87081; 84484; 83880; 87804 ×2; 71045; 99285; U0003

== ENCOUNTER → 2024-02-23 | Day surgery (SDC) | payer MEDICARE ==
--- NOTE | 2024-02-23 18:28 | RAD REPORT ---
EXAMINATION: Follow Up Breast [facility] CLINICAL INDICATION: R92.8 TECHNIQUE: Real-time sonography in multiple planes of the upper outer quadrant right breast COMPARISON: February 11, 2024 ultrasound The patient was referred for an ultrasound-guided core biopsy of a right breast mass. The prior ultra sound was reviewed. On the images there does appear to be a 1 cm hypoechoic mass upper outer quadrant right breast. Sonographic evaluation was performed by the technologist and myself. In this region were prominent du cts. However, a mass is not evident. IMPRESSION: Ultrasound-guided core biopsy of the right breast was not performed as a mass was not visualized with in the upper outer quadrant. The ducts are prominent and it appears that a confluence of the ducts gave the appearance of the mass on the prior exam. As a precaution it is recommended that patient hav e an MRI of the breasts if the exam is negative then no further follow-up would be required. BIRADS: BI-RAD 0 - Incomplete: Needs Additional Imaging Evaluation
== END ==
LOC: DS 09:01
PROVIDERS: ATTEND Family Medicine
DX: R92.8 Other abnormal and inconclusive findings on diagnostic imaging of breast (principal); Z53.8 Procedure and treatment not carried out for other reasons
CPT/HCPCS: 76642